=== PATIENT | male | born 1980 | race American Indian/Alaskan Native ===

== ENCOUNTER 2016-04-18 08:32 | Emergency (ER) | payer OTHER ==
[2016-04-18] MEDS ORDERED: NORCO 10/325 PO ONE (13:07)
[2016-04-18] MEDS ORDERED: CLEOCIN PO ONE (13:07)
--- NOTE | 2016-04-18 13:11 | Emergency Department Report ---
ED ENT HPI - General Chief complaint: Dental/Oral Stated complaint: GUMS RED WITH SWELLING/MOUTH PAIN Time Seen by Provider: 04/18/16 13:06 Source: patient Mode of arrival: Ambulatory Limitations: No Limitations - History of Present Illness Initial comments: 36-year-old -[place] male comes in with complaint of gums are swollen and sore teeth that are broken and decayed. This started yesterday. Patient reports he has not taken anything for the pain since he didn't have anything. Patient does admit to having poured digital hygiene and understands that he needs most of his teeth removed. Patient does not have a primary care provider or primary dentist. MD complaint: tooth pain - Related Data Previous Rx's Medication Instructions Recorded Last Taken Type levETIRAcetam [Keppra] 500 mg PO BID #90 tablet 12/25/13 Unknown Rx Clindamycin [Clindamycin CAP] 300 mg PO TID #30 capsule 04/18/16 Unknown Rx HYDROcodone/APAP 5-325 [[place] 1 - 2 each PO Q6HR PRN #12 tablet 04/18/16 Unknown Rx 5-325 mg TAB] Ibuprofen [Motrin 800 MG tab] 800 mg PO Q8HR PRN #45 tablet 04/18/16 Unknown Rx Allergies Allergy/AdvReac Type Severity Reaction Status Date / Time No Known Allergies Allergy Verified 04/18/16 10:57 ED Dental HPI - General Chief complaint: Dental/Oral Stated complaint: GUMS RED WITH SWELLING/MOUTH PAIN Time Seen by Provider: 04/18/16 13:06 Source: patient Mode of arrival: Ambulatory Limitations: No Limitations - Related Data Previous Rx's Medication Instructions Recorded Last Taken Type levETIRAcetam [Keppra] 500 mg PO BID #90 tablet 12/25/13 Unknown Rx Clindamycin [Clindamycin CAP] 300 mg PO TID #30 capsule 04/18/16 Unknown Rx HYDROcodone/APAP 5-325 [[place] 1 - 2 each PO Q6HR PRN #12 tablet 04/18/16 Unknown Rx 5-325 mg TAB] Ibuprofen [Motrin 800 MG tab] 800 mg PO Q8HR PRN #45 tablet 04/18/16 Unknown Rx Allergies Allergy/AdvReac Type Severity Reaction Status Date / Time No Known Allergies Allergy Verified 04/18/16 10:57 ED Review of Systems ROS: Stated complaint: GUMS RED WITH SWELLING/MOUTH PAIN Other details as noted in HPI Constitutional: denies: chills, fever ENT: dental pain Respiratory: denies: cough, shortness of breath, wheezing Cardiovascular: denies: chest pain, palpitations Gastrointestinal: denies: abdominal pain, nausea, diarrhea ED Past Medical Hx - Past Medical History Hx Seizures: Yes - Surgical History Past Surgical History?: No - Social History Smoking Status: Never Smoker Substance Use Type: None - Medications Home Medications: Home Medications Medication Instructions Recorded Confirmed Last Taken Type levETIRAcetam [Keppra] 500 mg PO BID #90 tablet 12/25/13 Unknown Rx Clindamycin [Clindamycin CAP] 300 mg PO TID #30 capsule 04/18/16 Unknown Rx HYDROcodone/APAP 5-325 [[place] 1 - 2 each PO Q6HR PRN #12 tablet 04/18/16 Unknown Rx 5-325 mg TAB] Ibuprofen [Motrin 800 MG tab] 800 mg PO Q8HR PRN #45 tablet 04/18/16 Unknown Rx ED Physical Exam - General Limitations: No Limitations General appearance: alert, in no apparent distress - Eye Eye exam: Present: normal appearance, PERRL, EOMI - ENT ENT exam: Present: mucous membranes moist - Expanded ENT Exam Expanded Teeth exam: Present: dental caries, fractured tooth # (17,16,19,32,) ED Course Vital Signs 04/18/16 04/18/16 10:55 13:32 Temperature 98.5 F Pulse Rate 55 L Respiratory 18 18 Rate Blood Pressure 126/72 O2 Sat by Pulse 100 Oximetry ED Medical Decision Making - Medical Decision Making Patient's been evaluated by this provider in fast track. Discussed patient that he has multiple dental caries and teeth fractures. Discussed with patient that we will place him on clindamycin 600 mg by mouth now with [place] for pain we will discharge patient on clindamycin 300 mg 1 tablet by mouth 3 times a day as well as [place] 5/325 one tablet by mouth every 6 hours dispensed 12 as well as ibuprofen 800 mg 1 tablet by mouth 3 times a day when necessary dispense 30 and a referral to dentist. Patient verbalized understanding Critical care attestation.: If time is entered above; I have spent that time in minutes in the direct care of this critically ill patient, excluding procedure time. ED Disposition Clinical Impression: Tooth caries Broken tooth-uncomplic Qualifiers: Encounter type: initial encounter Disposition: DISCHARGED TO HOME OR SELFCARE Is pt being admited?: No Does the pt Need Aspirin: No Condition: Stable Instructions: Dental Caries (ED) Additional Instructions: Very importantly complete all antibiotics and follow-up with the dentist to have those teeth removed. Prescriptions: Clindamycin [Clindamycin CAP] 300 mg PO TID #30 capsule HYDROcodone/APAP 5-325 [[place] 5-325 mg TAB] 1 - 2 each PO Q6HR PRN #12 tablet PRN Reason: Pain Ibuprofen [Motrin 800 MG tab] 800 mg PO Q8HR PRN #45 tablet PRN Reason: Pain Referrals: [facility] [Outside] - 3-5 Days [facility] [Outside] - 3-5 Days [facility] [Outside] - 3-5 Days Forms: Work/School Release Form(ED)
[2016-04-18 13:56] VITALS: BP 124/70
== END 2016-04-18 13:55 | disposition home or self-care (01) ==
LOC: ED 08:32
DX: K02.9 Dental caries, unspecified (principal)
CPT/HCPCS: 99282